=== PATIENT | male | born 1955 | race Caucasian/White ===

== ENCOUNTER → 2017-03-01 | Day surgery (SDC) | payer BC ==
[~2017-03-01] VITALS: Ht 182.9 cm; Wt 92.6 kg
[~2017-03-01] MED LIST: *morphine SULFATE 8 MG/ML PERIprocedure ONLY ONE; ACETAMINOPHEN 500 MG CPLT PO PRN; ATROPINE SULFATE 1% OPHT SOLN 2 ML BTL ONE; ATROPINE SULFATE 1% OPHT SOLN 5 ML BTL LEFT EYE SCH; BACITRACIN TOP OINT 15 GM TUBE ONE; BALANCED SALT SOLN OPHT IRRIG 15 ML BTL ONE; BUSP5TAB PO; CHLORHEXIDINE GLUCONATE 2 % 1 PACK (2 CLOTHS) TOPICAL PRN; CYCLOPENTOLATE HCL 1% OPHT SOLN 2 ML BTL LEFT EYE SCH; DEXAMETHASONE SOD PHOS 4 MG/ML VIAL ONE; DO NOT ADM ANY ANTICOAGULANT DRUGS PRN; ENALAPRILAT 1.25 MG/ML VIAL ONE; EPINEPHrine HCL (1:1000) 1 MG/ML VIAL ONE; FAMOTIDINE 20 MG/2 ML VIAL IV ONE; FAMOTIDINE 20 MG/2 ML VIAL ONE; GLIM4TAB PO; INSULIN HUMAN REGULAR 1,000 UNITS/10 ML VIAL SQ PRN; LACTATED RINGER'S 1000 ML IV PRN; LISI-519 PO; LOVA10TA PO; METF1000 PO; METOPROLOL TARTRATE 25 MG TAB PO PRN; ONDANSETRON HCL 4 MG/2 ML VIAL IM PRN; ONDANSETRON HCL 4 MG/2 ML VIAL IV PUSH ONE; PHENYLEPH/NS 1000 MCG/10 ML SYR IV ONE; PHENYLEPHRINE HCL 2.5% OPTH SOLN 2 ML BTL LEFT EYE SCH; POVIDONE IODINE 5% (ANTISEPSIS KIT) 4 APPLICATIONS EACH NARE PRN; PROPOFOL 200 MG/20 ML AMP IV ONE; SITA50 PO; SODIUM CHLORID 0.9% 500 ML IV PRN; STERILE WATER FOR INJ 20 ML VIAL ONE; TOBRAMYCIN/DEXAMETHASONE OPTH OINT 3.5 GM TUBE ONE; TRIAMCINOLONE ACETONIDE/PF 40 MG/ML OPTH VIAL ONE; TROPICAMIDE 1% OPHT SOLN 15 ML BTL ONE; TROPICAMIDE 1% OPTH SOLN 2 ML BTL LEFT EYE SCH; VENL75CA44 PO; ceFAZolin INJ 1,000 MG VIAL ONE; oxyCODONE/ACETAMINOPHEN 5 MG/325 MG TAB PO PRN
[2017-03-01 08:18] VITALS: BP 152/84; PULSE 58; RESP 18; TEMP 97.6; O2SAT 98
[2017-03-01 08:42] LABS: AUTOMATED NEUTROPHIL # 3.4 TH/MM3 (1.8-7.7); BASOPHIL % 0.6 % (0.0-2.0); EOSINOPHIL # 0.3 TH/MM3 (0-0.4); EOSINOPHIL % 5.6 % (0.0-4.0); HEMATOCRIT 37.6 % (39.0-51.0); HEMO FLAGS DIFF FINAL; LYMPH % 21.5 % (9.0-44.0); LYMPHOCYTE # 1.1 TH/MM3 (1.0-4.8); MEAN CELL VOLUME 88.5 FL (80.0-100.0); MEAN CORPUSCULAR HEMOGLOBIN 30.7 PG (27.0-34.0); MEAN CORPUSCULAR HGB CONC 34.7 % (32.0-36.0); MONO % 7.3 % (0.0-8.0); PLATELET COUNT 180 TH/MM3 (150-450); RED BLOOD COUNT 4.25 MIL/MM3 (4.50-5.90); RED CELL DISTRIBUTION WIDTH 13.9 % (11.6-17.2); WHITE BLOOD COUNT 5.3 TH/MM3 (4.0-11.0)
[2017-03-01 13:00] VITALS: RESP 18; TEMP 97.5; O2SAT 97
[2017-03-01 14:05] VITALS: BP 140/78; PULSE 80
--- NOTE | 2017-03-01 16:45 | EKG ---
Date Performed: 03/01/2017 Time Performed: 08:18:18 PTAGE: 61 years EKG: Sinus rhythm WITH FREQUENT VENTRICULAR PREMATURE COMPLEXES NONSPECIFIC T-WAVE ABNORMALITY ABNORMAL RHYTHM ECG PREVIOUS TRACING : 07/22/2013 10.00 Compared to prior tracing no significant change DOCTOR: Edwar Medina Interpretating Date/Time 03/01/2017 16:44:40
--- NOTE | 2017-03-01 21:37 | MP ---
cc: DANI GARCIA MD DATE OF SURGERY 03/01/17 PREOPERATIVE DIAGNOSIS Total rhegmatogenous retinal detachment, left eye. POSTOPERATIVE DIAGNOSIS Total rhegmatogenous retinal detachment, left eye. PROCEDURE Trans pars plana vitrectomy, internal drainage of subretinal fluid, endolaser photocoagulation and gas fluid exchange, left eye. SURGEON Dr. Lynn Garcia ANESTHESIA General laryngeal mask anesthesia INDICATIONS Mr. Pinon is a 61-year-old gentleman who presented on February 19 with a total retinal detachment in his left eye. This detachment could have been present for a week prior. The patient was unsure of the onset of this detachment, but related flashes and floaters approximately four weeks ago. His visual acuity was light perception and he was found to have a total rhegmatogenous retinal detachment. He wished to proceed with repair of the detachment so informed consent was obtained for a vitrectomy and possible scleral buckle to the left eye. No guarantee was made as to visual outcome. PROCEDURE IN DETAIL He is brought to [facility] operating room one and placed on the operating table. Appropriate anesthesia monitoring was applied and then he was placed under general anesthesia using a laryngeal mask. The left eye was identified as the operative site and then prepped and draped in the usual sterile fashion. A lid speculum was placed. The microscope was brought around and adjusted. At this point, a time-out was called with the surgical team agreeing to the surgical site and planned procedure. Using the Brent 23-gauge vitrectomy system, the trocar cannulas were placed 3-1/2 mm posterior to the limbus after first displacing the conjunctiva. The first one was placed at approximately 3 o'clock and verified to be in the posterior chamber. An infusion cannula was affixed to it and it was turned on. Two additional trocar cannulas were placed at 10 and 2 o'clock. The eye was entered with the Endoilluminator light pipe and vitrectomy cutter and, using the flat contact lens, a core vitrectomy and anterior vitrectomy centrally were carried out. The flat lens was then exchanged for the BIOME wide angle viewing system and Perfluoron liquid was used to stabilize the posterior retina. The peripheral retina was then dissected down to the vitreous base 360 degrees using scleral depression. The Perfluoron was then used to flatten the peripheral retina after which laser photocoagulation using both the endolaser probe and the laser indirect delivery system were delivered to the periphery 360 degrees. A total of 1801 laser spots were placed with a power that varied between 300 and 450 milliwatts depending on the mode of application and a duration of 0.15 seconds. The Perfluoron was then removed and replaced with an air-fluid exchange. The air was exchanged for a 15% mixture of C3F8 gas. The plugs were placed back in the eye and the cannulas were removed one by one with tamponade of the site with a cotton swab. Diathermy was applied to the conjunctival wound overlying the sclerotomies. This left the with good pressure and no visible air leaks. The retinal break appeared to be at about 1:30 o'clock up at the vitreous base. Subconjunctival injections of Ancef 125 mg in 0.5 ml and Decadron 2 mg in 0.5 ml were given at separate sites. The lid speculum was removed. Atropine drops were placed on the cornea followed by TobraDex ointment. The left eye was patched and shielded. The patient had the laryngeal mass removed in the room and was returned to recovery in good condition laying on his right side. When awake and alert, he will be asked to assume a face down position. MD MELINDA Gutiérrez/ /11:57 AM /9:26 PM
== END | disposition home or self-care (01) ==
LOC: HSDC 07:49
PROVIDERS: ATTEND Ophthalmology
DX: H33.002 Unspecified retinal detachment with retinal break, left eye (principal); I10 Essential (primary) hypertension; E78.5 Hyperlipidemia, unspecified; K21.9 Gastro-esophageal reflux disease without esophagitis; E11.9 Type 2 diabetes mellitus without complications; Z96.652 Presence of left artificial knee joint
CPT/HCPCS: 67108; 82948; 85025; 93005; J0171; J0690; J1100; J2270; J2370; J2405; J3010; J7120; J3300